=== PATIENT | female | born 1995 | race Caucasian/White ===

== ENCOUNTER → 2020-03-18 15:23 | Outpatient (CLI) | payer OTHER, SELFPAY ==
--- NOTE | 2020-03-18 | DI.ECHO.S_ITS ---
[facility] +---------+ : : [address] : [address] : : : : [id number] : : : : Phone: [phone]+ Echocardiogram Report + + :Name: JOVANNA COREA Study Date: 03/18/2020 Height: 64 in : :[facility] Weight: 149 lb : : Gender: Female BSA: 1.7 m2 : :: 1995 Age: 24 yrs BP: 126/85 mmHg: :Reason For Study: Abnormal CXR : :Ordering Physician: ZULEMA, : :ROMY Performed By: Paloma Bateman : :Referring: ROMY POOLE : + + Interpretation Summary Left ventricular systolic function is normal with an estimated ejection fraction of 55 to 60% without focal wall motion abnormality. Left ventricular size and wall thickness are normal with probable normal diastolic function and normal filling pressures. The right ventricle appears normal. Pulmonary artery systolic pressure cannot be estimated but CVP is likely around 3 mmHg. Both atria are normal in size. The cardiac valves are normal without any functional abnormality. This is a normal echocardiogram. Procedure: A two-dimensional transthoracic echocardiogram with color flow and Doppler was performed. The study quality was technically adequate. There is no prior echocardiogram noted for this patient. The heart rate ranged between 59-64 bpm during the study. Left Ventricle: The left ventricle is normal in size, wall thickness, and systolic function without any focal wall motion abnormalities. The ejection fraction is estimated to be 55-60%. Diastolic parameters suggest probable normal left ventricular diastolic function and normal filling pressures. Right Ventricle: The right ventricle is normal in size and function. Atria: Both atria are normal in size. There is no Doppler evidence for an interatrial shunt. Mitral Valve: The mitral valve is normal in structure and function. There is no mitral regurgitation noted. Aortic Valve: The aortic valve is trileaflet. The aortic valve opens well. There is no aortic valve stenosis. No aortic regurgitation is present. Tricuspid Valve: The tricuspid valve is normal in structure and function. There is trace tricuspid regurgitation. Pulmonary artery pressures cannot be estimated because of the lack of a measurable TR jet velocity but the IVC suggests a CVP of around 3 mmHg. Pulmonic Valve: The pulmonic valve is normal in structure and function. There is trace pulmonic regurgitation. There is no significant valvular heart disease. Great Vessels: The aortic root is normal size. The ascending aorta is normal in size. The IVC is of normal diameter and collapses greater than 50% with a sniff. This suggests a low right atrial pressure of 3 mm Hg. Pericardium/ Pleura There is no pericardial effusion. There is no pleural effusion. MMode/2D Measurements & Calculations LVIDd: 4.7 cm LVOT diam: 2.1 cm LVIDs: 3.2 cm Ao root diam: 2.4 cm FS: 30.6 % asc Aorta Diam: 2.3 cm EPSS: 0.86 cm Ao Arch Diam (Prox Trans): 2.4 cm IVSd: 0.64 cm LVPWd: 0.71 cm LV morocho. diameter/BSA (cm/m^2): 2.7 LV sys. diameter/BSA (cm/m^2): 1.9 LA A2 area: 16.7 cm2 RA long axis: 4.7 cm LA A4 area: 17.0 cm2 RA area: 13.5 cm2 LA length (vol): 4.9 cm RA vol: 33.4 ml LA vol: 49.0 ml RA : 19.4 ml/m2 LA vol index: 28.4 ml/m2 IVC diam: 1.5 cm RVD1 (basal): 3.1 cm TAPSE: 2.0 cm Doppler Measurements & Calculations Ao V2 max: 123.4 cm/sec LVOT Max Lenard: 85.0 cm/sec Ao V2 mean: 82.3 cm/sec LV V1 max P.9 mmHg Ao max P.1 mmHg LV V1 VTI: 17.6 cm Ao mean P.1 mmHg RANJIT(I,D): 2.3 cm2 Ao V2 VTI: 27.5 cm RANJIT(V,D): 2.5 cm2 sev ratio: 0.64 RANJIT indexed to BSA (cm^2/m^2): 1.3 MV E max lenard: 96.3 cm/sec PA V2 max: 95.8 cm/sec MV A max lenard: 39.9 cm/sec PA V2 mean: 62.4 cm/sec MV E/A: 2.4 PA mean P.8 mmHg Med Peak E' Lenard: 11.4 cm/sec PA pr(Accel): 8.8 mmHg E/E' med: 8.5 Lat Peak E' Lenard: 22.8 cm/sec E/E' lat: 4.2 E/e' average: 6.3 MV dec time: 0.22 sec RUSTLVOT): 63.1 ml Reading Physician:PM
== END ==
PROVIDERS: Referring Provider Physician Assistant; Visit Provider Physician Assistant
DX: I51.9 Heart disease, unspecified (principal); R93.89 Abnormal findings on diagnostic imaging of other specified body structures
CPT/HCPCS: 93306

== ENCOUNTER 2021-05-04 10:22 | Emergency (ER) | payer OTHER, SELFPAY ==
[2021-05-04 10:28] VITALS: BP 118/78; PULSE 95; RESP 16; TEMP 36.8; O2SAT 98; BMI 30.9
--- NOTE | 2021-05-04 10:29 | ED.GENADULT ---
HPI - General Adult General Chief complaint: Nasal Problem Stated complaint: Nose Bleed Time Seen by Provider: 05/04/21 10:23 Source: patient and EMS Mode of arrival: EMS History of Present Illness HPI narrative: Patient is a 25-year-old female. 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. It was a intranasal approach. From the patient's description it sounds like it was a arachnoid cyst but I am not 100% confident of that specific diagnosis. She comes emergency department today for nose bleed. She states that this morning she was lying down. States that felt like a faucet. When she sat up blood started coming out of her nose. She is unsure exactly what side it was coming out of. EMS reports that was from the right nostril. She is feeling nauseous. Pressure was held. EMS stated that it had essentially stopped and round to the emergency department but then started again. Patient is also describing some heaviness in her chest. Related Data Allergies Allergy/AdvReac Type Severity Reaction Status Date / Time No Known Drug Allergies Allergy Verified 05/04/21 10:30 Review of Systems Constitutional Constitutional: Denies fever(s) and Reports headache(s) Eyes Eyes: Reports exophthalmos ENT Ears, Nose, Mouth, and Throat: Reports headache(s) and Denies sore throat Cardiovascular Cardiovascular: Denies chest pain and Reports dyspnea Respiratory Respiratory: Reports dyspnea Gastrointestinal Gastrointestinal: Reports nausea Integumentary/Breasts Skin/Breast: Reports system reviewed and no additional complaints, except as documented Neurologic Neurologic: Reports headache(s) Hematologic/Lymphatic On Anticoagulants: No Allergic/Immunologic Allergic/Immunologic: Reports system reviewed and no additional complaints, except as documented Patient History Social History (Updated 05/04/21 @ 10:37 by Niranjan Curtis DO) lives independently: Yes Smoking Status: Never smoker Exam Initial Vital Signs Initial Vital Signs: Vital Signs Temperature 98.2 F 05/04/21 10:28 Pulse Rate 95 H 05/04/21 10:28 Respiratory Rate 16 05/04/21 10:28 Blood Pressure 118/78 05/04/21 10:28 Pulse Oximetry 98 05/04/21 10:28 Const General: cooperative, healthy appearing, comfortable and well developed HENMI Head: normal to inspection Nose: external nose normal and epistaxis Face and sinus: normal facial exam Mouth: oral mucosae normal and tongue normal Eyes General: appearance normal, both eyes and all related structures Chest Chest: normal inspection of the chest Resp Effort & Inspection: normal respiratory effort Auscultation: clear to auscultation bilaterally Cardio Rate: regular rate Rhythm: regular rhythm GI Inspection: normal to inspection Skin General: no rashes or lesions noted Neuro General: patient alert, patient awake, patient oriented x3 and moves all extremities Extrem General: capillary refill normal Psych Appearance: grossly normal and well kempt Course Orders Ordered: Discontinued Medications Acetaminophen (Acetaminophen 325 Mg Tablet) 650 mg PO NOW ONE Stop: 05/04/21 11:05 Last Admin: 05/04/21 11:17 Dose: 650 mg Documented by: LIZZY Ondansetron HCl (Ondansetron 4 Mg Odt) 4 mg SL NOW ONE Stop: 05/04/21 10:29 Last Admin: 05/04/21 10:36 Dose: 4 mg Documented by: LIZZY Ondansetron HCl (Ondansetron 4 Mg Odt) 4 mg SL NOW ONE Stop: 05/04/21 12:11 Last Admin: 05/04/21 12:19 Dose: 4 mg Documented by: LIZZY Vital Signs Vital signs: Vital Signs - 8 hr 05/04/21 10:28 05/04/21 12:21 Temperature 98.2 F Pulse Rate 95 H 85 Respiratory Rate 16 16 Blood Pressure 118/78 112/70 Pulse Oximetry 98 98 Medical Decision Making MDM Narrative Medical decision making narrative: Patient was observed here in the emergency department for period of time. A nasal clamp was placed. When it was removed she was observed for a longer period of time without any continued bleeding. She is having some nausea which is controlled with Zofran. She has Zofran at home. It does appear that the bleeding is coming from the right nostril. Examination of the nostril does not show a specific site of bleeding. She is afebrile. Plan will be is to send her home with conservative treatment without further workup. She was given return precautions and follow-up instructions. She expressed understanding and agreement. Discharge Plan Departure Patient Disposition: Home Clinical Impression: Epistaxis Instructions: DI for Nosebleed Activity Restrictions/Additional Instructions: Use the nausea medicine that you already have for any nausea issues. Use the to try your hardest not to manipulate your nose and this includes sniffing, rubbing your nose, sneezing, vomiting. Follow all of the postoperative instructions given to you by the surgeons. Contact your primary provider for a follow-up. Return to the emergency department for any new or worsening symptoms
[2021-05-04] MEDS: ONDANSETRON 4 MG ODT SL ×2 (10:36→12:19)
[2021-05-04] MEDS: ACETAMINOPHEN 325 MG TABLET 650 MG PO (11:17)
--- NOTE | 2021-05-04 12:13 | PC.NURSE ---
EMS states r-nare was bleeding, pt states surgery mid-April to remove cyst via r-nare procedure.
[2021-05-04 12:21] VITALS: BP 112/70; PULSE 85; RESP 16; O2SAT 98
== END 2021-05-04 12:22 | disposition home or self-care (01) ==
PROVIDERS: Emergency Provider Emergency Medicine
DX: R04.0 Epistaxis (principal); R07.9 Chest pain, unspecified; R51.9 Headache, unspecified; R11.0 Nausea
CPT/HCPCS: 99283

== ENCOUNTER 2021-05-04 21:28 | Emergency (ER) | payer OTHER, SELFPAY ==
[2021-05-04 20:54] VITALS: BP 151/69; PULSE 127; RESP 24; TEMP 37.5; O2SAT 99; BMI 30.9
--- NOTE | 2021-05-04 21:52 | ED_ITS ---
HPI - Epistaxis General Chief complaint: Nasal Problem Stated complaint: Nose Bleed- post-surg Time Seen by Provider: 05/04/21 21:31 History of Present Illness HPI Narrative: Patient is a 25-year-old female who presents for 2nd time today with epistaxis. 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 Nose bleed started earlier today she was here around 10:30 a.m. was easily stopped with a nasal clamp. She went home it restarted she placed a nasal clamp on it she said for 37 minutes at continue to bleed at which point EMS was called. It seems to be pouring out both sides and going down her throat. She is not on any antiplatelet or anticoagulation medication. Related Data Allergies Allergy/AdvReac Type Severity Reaction Status Date / Time No Known Drug Allergies Allergy Verified 05/04/21 10:30 Review of Systems Review of Systems Narrative: GENERAL: Denies chills,fever HEENT: See HPI RESPIRATORY: Denies dyspnea, cough, wheezing CARDIOVASCULAR: Denies chest pain, palpitations GASTROINTESTINAL: Denies nausea, vomiting MUSCULOSKELETAL: Denies extremity pain, injury SKIN: No rash, no laceration, no pruritus NEUROLOGIC: Denies weakness, dizziness, headache, numbness 8 point review of systems is negative except for those stated above and HPI Patient History Social History (Updated 05/04/21 @ 10:37 by Niranjan Curtis DO) lives independently: Yes Smoking Status: Never smoker Smoking Status: Never smoker Substance Use Type: does not use Exam Initial Vital Signs Initial Vital Signs: Vital Signs Temperature 99.5 F 05/04/21 20:54 Pulse Rate 127 H 05/04/21 20:54 Respiratory Rate 24 05/04/21 20:54 Blood Pressure 151/69 H 05/04/21 20:54 Pulse Oximetry 99 05/04/21 20:54 GENERAL: Anxious 25-year-old female bilateral epistaxis NOSE: Bilateral epistaxis. Nasal suction is used in both nares. Initially no significant active bleeding was found anteriorly left side seems to be bleeding posteriorly but slowly. Unable to visualize bleed. Afrin placed with nasal clamp, however continued to bleed out both sides. Posterior Rhino rocket with Afrin placed on the left side. Quickly soaked and placed. Continues to spit up blood. 16 Green[place] Diamond catheter placed on right side CARDIOVASCULAR: peripheral pulses in tact, cap refill <2 sec RESPIRATORY: No respiratory distress, speaks in full sentences without difficulty EXTREMITIES: Normal range of motion, no clubbing or edema. Neurovascularly intact NEUROLOGICAL: Cranial nerves II through XII grossly intact. Normal gait and speech. SKIN: Warm, dry, no petechiae, no rashes or lesions. Course Orders Ordered: ED Orders 05/04/21 22:00 Complete Blood Count AUTO DIFF Stat Comprehensive Metabolic Panel Stat 05/04/21 22:25 Partial Thromboplastin Time Stat Prothrombin Time INR Stat 05/04/21 22:48 EKG-12 Lead Stat Discontinued Medications Morphine Sulfate (Morphine 2 Mg/Ml Inj) 2 mg IV NOW ONE Stop: 05/04/21 22:16 Last Admin: 05/04/21 22:22 Dose: 2 mg Documented by: DELIA Morphine Sulfate (Morphine 2 Mg/Ml Inj) 2 mg IV NOW ONE Stop: 05/04/21 23:34 Last Admin: 05/04/21 23:38 Dose: 2 mg Documented by: MELLISSA Oxymetazoline HCl (Oxymetazoline Nasal [place] 15 Ml) 2 sprays NASAL NOW ONE Stop: 05/04/21 21:32 Last Admin: 05/04/21 22:21 Dose: 2 sprays Documented by: DELIA Silver Nitrate/Potassium Nitrate (Silver Nitrate Stick) 2 each TOP NOW ONE Stop: 05/04/21 21:37 Last Admin: 05/04/21 22:37 Dose: Not Given Documented by: DELIA Vital Signs Vital signs: Vital Signs - 8 hr 05/04/21 20:54 05/04/21 22:38 05/04/21 23:00 Temperature 99.5 F Pulse Rate 127 H 106 H 102 H Respiratory Rate 24 24 20 Blood Pressure 151/69 H 141/75 H 128/76 Pulse Oximetry 99 99 97 05/04/21 23:30 Temperature Pulse Rate 125 H Respiratory Rate 29 H Blood Pressure 135/80 Pulse Oximetry 95 MDM - Epistaxis Lab Data Result diagrams: 05/04/21 22:00 05/04/21 22:00 Labs: Lab Results 05/04/21 05/04/21 05/04/21 Range/Units 22:00 22:00 22:25 WBC 11.6 H (4.5-11.0) X10^3/uL RBC 3.86 L (4.0-5.2) X10^6/uL Hgb 11.0 L (12.0-16.0) g/dL Hct 34.0 L (36-46) % MCV 87.9 (80-100) fL MCH 28.5 (26-34) PG MCHC 32.4 (30-36) % RDW 14.4 (11.6-14.8) % Plt Count 376 (150-400) X10^3/uL Neut % (Auto) 69.0 (50-75) % Lymph % (Auto) 18.6 L (25-40) % [place] % (Auto) 11.2 (3-14) % Eos % (Auto) 0.9 L (2-4) % Baso % (Auto) 0.3 (0-2) % Neut # (Auto) 8000 H (3665-6686) /uL Lymph # (Auto) 2200 (6122-1002) /uL [place] # (Auto) 1300 H (0-900) /uL Eos # (Auto) 100 (0-450) /uL Baso # (Auto) 0 (0-100) /uL PT 11.4 (10.1-12.7) SECONDS INR 1.0 (0.9-1.3) APTT 35 (26.4-36.2) SECONDS Sodium 141 (137-145) mmol/L Potassium 4.3 (3.4-5.1) mmol/L Chloride 104 (98-107) mmol/L Carbon Dioxide 28 (22-32) mmol/L BUN 10 (7-17) mg/dL Creatinine 0.73 (0.52-1.04) mg/dL Estimated GFR > 60.0 (>60) mL/min BUN/Creatinine Ratio 13.7 (6-22) Glucose 108 H (70-100) mg/dL Calcium 9.7 (8.4-10.2) mg/dL Total Bilirubin 0.2 (0.2-1.3) mg/dL AST 23 (14-36) IU/L ALT 19 (<35) IU/L Alkaline Phosphatase 79 (38-126) U/L Total Protein 7.7 (6.3-8.2) g/dL Albumin 4.4 (3.5-5.0) g/dL Globulin 3.3 (1.7-4.1) g/dL Albumin/Globulin Ratio 1.3 (1.0-2.8) MDM Narrative Medical decision making narrative: Initial nasal clamp placed but continues to bleed out both sides. I suction both nares trying to visualize area of b leeding. Unable to do so but bleeding initially controlled. Afrin placed in both nares clamp replaced. And started bleeding again. It seemed to be coming out more of the left side. Unfortunately only 1 posterior rhino rocket available, they are on order. Rhino rocket placed in left [place] with Afrin. She continues to bleed around that left knee are and out of the right nare as well. 16 Green[place] Diamond catheter placed in right [place]. Seems to have controlled and stopped some of the bleeding. Continues to cough and spit up saliva and blood tinged saliva. 2199-Dr. Jarrell ENT, states patient needs to go to [facility] and that nose needs to be packed. States he is 40-45 minutes away and that she needs to be airlifted to [facility]. The patient remains tachycardic and hypertensive. Bleeding seems to have stopped not draining down throat not coming out nares 225 Dr Nieto, ENT, at [facility] updated patient's symptoms test results recommends patient be transferred his to ED. Patient's bleeding is temporized but due for instability would be better if she is fliwn. This facility has done everything we can to help her. And she needs higher level of Critical Care Time Critical Care Time Critical Care Time: Yes Total Critical Care Time: 45 Attestation: The high probability of a clinically significant, sudden or life threatening deterioration of the [cardiovascular] system(s) required my full and direct attention, intervention and personal management. The aggregate critical care time was [45] minutes. This time is in addition to time spent performing reported procedures but includes the following: [x] Data Review and interpretation [x] Patient assessment and monitoring of vital signs [x] Documentation [x] Medication orders and management Discharge Plan Departure Patient Disposition: [facility] Clinical Impression: Epistaxis
[2021-05-04] MEDS: OXYMETAZOLINE NASAL SPRAY 15 ML 2 SPRAYS NASAL (22:21)
[2021-05-04] MEDS: MORPHINE 2 MG/ML INJ IV ×2 (22:22→23:38)
[2021-05-04 22:25] LABS: Add Manual Diff / Slide Review NO; Basophils Absolute Auto 0 /uL (0-100); Basophils Percent Auto 0.3 % (0-2); Eosinophils Absolute Auto 100 /uL (0-450); Eosinophils Percent Auto 0.9 % (2-4); Lymphocytes Absolute Auto 2200 /uL (1100-4500); Lymphocytes Percent Auto 18.6 % (25-40); Mean Corpuscular HGB Conc 32.4 % (30-36); Mean Corpuscular Hemoglobin 28.5 PG (26-34); Mean Corpuscular Volume 87.9 fL (80-100); Monocytes Absolute Auto 1300 /uL (0-900); Monocytes Percent Auto 11.2 % (3-14); Neutrophils Absolute Auto 8000 /uL (1500-7000); Platelet Count 376 X10^3/uL (150-400); Red Blood Cell Count 3.86 X10^6/uL (4.0-5.2); Red Cell Distribution Width 14.4 % (11.6-14.8); White Blood Cell Count 11.6 X10^3/uL (4.5-11.0)
[2021-05-04 22:28] LABS: Alanine Aminotransferase 19 IU/L (<35); Albumin 4.4 g/dL (3.5-5.0); Albumin Globulin Ratio 1.3 (1.0-2.8); Alkaline Phosphatase 79 U/L (38-126); Aspartate Aminotransferase 23 IU/L (14-36); BUN Creatinine Ratio 13.7 (6-22); Bilirubin Total 0.2 mg/dL (0.2-1.3); Blood Urea Nitrogen 10 mg/dL (7-17); Calcium 9.7 mg/dL (8.4-10.2); Carbon Dioxide 28 mmol/L (22-32); Chloride 104 mmol/L (98-107); Estimated Glomerular Filt Rate > 60.0 mL/min (>60); Globulin 3.3 g/dL (1.7-4.1); Glucose 108 mg/dL (70-100); HEMOLYSIS < 15 (0-50); Potassium 4.3 mmol/L (3.4-5.1); Sodium 141 mmol/L (137-145); Total Protein 7.7 g/dL (6.3-8.2)
[2021-05-04 22:38] VITALS: BP 141/75; PULSE 106; RESP 24; O2SAT 99
[2021-05-04 23:00] VITALS: BP 128/76; PULSE 102; RESP 20; O2SAT 97
[2021-05-04 23:09] LABS: Prothrombin Time 11.4 SECONDS (10.1-12.7)
[2021-05-04 23:12] LABS: PTT Partial Thromboplastin Tim 35 SECONDS (26.4-36.2)
[2021-05-04 23:30] VITALS: BP 135/80; PULSE 125; RESP 29; O2SAT 95
== END 2021-05-04 23:51 | disposition short-term general hospital (02) ==
PROVIDERS: Emergency Provider Emergency Medicine
DX: R04.0 Epistaxis (principal); R00.0 Tachycardia, unspecified; I10 Essential (primary) hypertension
CPT/HCPCS: 30903; 30905; 36415; 80053; 85025; 85610; 85730; 93005; 93010; 96374; 96376; 99283; 99284; 99291; A9270; J2270

== ENCOUNTER 2021-05-28 10:47 | Emergency (ER) | payer OTHER, SELFPAY ==
[2021-05-28] VITALS (18 sets, daily range): BP systolic 112–140; BP diastolic 59–90; PULSE 77–101; RESP 14–18; TEMP 35.6; O2SAT 97–100
--- NOTE | 2021-05-28 14:46 | DI.RAD.S_ITS ---
PROCEDURE: XR CHEST 1V INDICATIONS: chest pain TECHNIQUE: One view of the chest was acquired. COMPARISON: None. FINDINGS: Surgical changes and devices: None. Lungs and pleura: Lungs are clear. No pleural effusions or pneumothorax. Mediastinum: Mediastinal contours appear normal. Heart size is normal. Bones and chest wall: No suspicious bony lesions. Overlying soft tissues appear unremarkable. IMPRESSION: No acute cardiopulmonary pathology. Dictated by: Giovany Cheema M.D. on 05/28/2021 at 15:54 Approved by: Giovany Cheema M.D. on 05/28/2021 at 15:55
[2021-05-28 15:06] LABS: Add Manual Diff / Slide Review NO; Basophils Absolute Auto 100 /uL (0-100); Basophils Percent Auto 0.7 % (0-2); Eosinophils Absolute Auto 0 /uL (0-450); Eosinophils Percent Auto 0.1 % (2-4); Hematocrit 29.2 % (36-46); Hemoglobin 9.3 g/dL (12.0-16.0); Lymphocytes Absolute Auto 1500 /uL (1100-4500); Lymphocytes Percent Auto 18.5 % (25-40); Mean Corpuscular HGB Conc 31.8 % (30-36); Mean Corpuscular Hemoglobin 26.7 PG (26-34); Mean Corpuscular Volume 83.8 fL (80-100); Monocytes Absolute Auto 400 /uL (0-900); Monocytes Percent Auto 4.9 % (3-14); Neutrophils Absolute Auto 6000 /uL (1500-7000); Neutrophils Percent Auto 75.8 % (50-75); Platelet Count 312 X10^3/uL (150-400); Red Blood Cell Count 3.48 X10^6/uL (4.0-5.2); White Blood Cell Count 7.9 X10^3/uL (4.5-11.0)
[2021-05-28 16:03] LABS: Alanine Aminotransferase 11 IU/L (<35); Albumin 4.1 g/dL (3.5-5.0); Albumin Globulin Ratio 1.5 (1.0-2.8); Alkaline Phosphatase 71 U/L (38-126); Aspartate Aminotransferase 20 IU/L (14-36); BUN Creatinine Ratio 8.6 (6-22); Bilirubin Total 0.3 mg/dL (0.2-1.3); Blood Urea Nitrogen 5 mg/dL (7-17); Calcium 9.5 mg/dL (8.4-10.2); Carbon Dioxide 25 mmol/L (22-32); Chloride 105 mmol/L (98-107); Creatine Kinase 24 U/L (30-135); Estimated Glomerular Filt Rate > 60.0 mL/min (>60); Globulin 2.7 g/dL (1.7-4.1); Glucose 100 mg/dL (70-100); HEMOLYSIS < 15 (0-50); Lipase 128 U/L (23-300); Potassium 4.7 mmol/L (3.4-5.1); Sodium 138 mmol/L (137-145); Total Protein 6.8 g/dL (6.3-8.2)
[2021-05-28 16:15] LABS: Troponin I < 0.012 ng/mL (0.01-0.034)
--- NOTE | 2021-05-28 16:37 | ED.CHESTPAIN ---
HPI - Chest Pain General Chief Complaint: Chest Pain Stated Complaint: chest discomfort and dizziness after surgery Time Seen by Provider: 05/28/21 12:23 Source: patient Mode of arrival: Ambulatory Limitations: no limitations History of Present Illness HPI narrative: 25-year-old woman who underwent endoscopic brain surgery on April 26 for a brain tumor at the [facility]. She then underwent emergent surgery on 05/11 to cauterize arterial bleeding related to the surgery. All of this was at the [facility]. She reports that her physicians noted that she was tachycardic in the emergency department at that time she said the attributed it to anxiety, pain and postsurgical blood-loss. She presents today complaining of exertional fatigue and dyspnea with minimal effort increased heart rate, dizziness and a sense of being unsteady if she standing too long. She has been having increasing nausea and also complains of increasing nasal mucus. She states that she has not had any change to the headaches that she has been experiencing since being discharged home 2 weeks ago. She notes that the headaches tend to be worse at night and most she takes 2 Tylenol per 24 hours to help with this. She describes no vomiting, no black stools, no abdominal pain and no acute neurologic findings otherwise. She is not describing palpitations or chest tightness. Related Data Allergies Allergy/AdvReac Type Severity Reaction Status Date / Time No Known Drug Allergies Allergy Verified 05/28/21 10:50 Review of Systems Review of Systems Narrative: Remainder of complete review of systems is otherwise unremarkable except for that included in the HPI. Patient History Medical History Brain tumor Social History lives independently: Yes Smoking Status: Never smoker Smoking Status: Never smoker alcohol intake frequency: holidays/special occasions only Substance Use Type: does not use Exam Narrative Exam Narrative: General: Healthy appearing, in no acute distress. Able to give a complete and coherent history. Well-nourished well-developed HEENT: Moist mucous membranes, normal sclera with reactive pupils, Neck: No JVD, supple Respiratory: Lungs are clear to auscultation, no wheezing no rales no rhonchi. Full and symmetrical air movement Cardiac: Tachycardic with regular rhythm, no murmurs no bruits Abdomen: Soft, nontender, good bowel tones, no flank pain Skin: Warm and dry, no rashes Neurologic: Grossly neurologically intact with no obvious asymmetries or abnormalities Extremities: No trauma, well perfused Psych: Cooperative, appropriate insight and affect Initial Vital Signs Initial Vital Signs: Vital Signs Temperature 96.0 F L 05/28/21 10:50 Pulse Rate 89 05/28/21 10:50 Respiratory Rate 15 05/28/21 10:50 Blood Pressure 133/76 05/28/21 10:50 Pulse Oximetry 100 05/28/21 10:50 Course Orders Ordered: ED Orders 05/28/21 10:54 EKG-12 Lead Stat 05/28/21 14:45 Complete Blood Count AUTO DIFF Stat Comprehensive Metabolic Panel Stat Lipase Stat Troponin & CK Cardiac Panel Stat 05/28/21 14:46 XR chest 1V Stat EKG-12 Lead Stat Sodium Chloride (Normal Saline 0.9%) 1,000 mls @ 1,000 mls/hr IV BOLUS ONE Stop: 05/28/21 17:48 Last Admin: 05/28/21 16:53 Dose: 1,000 mls/hr Documented by: Sodium Chloride (Normal Saline 0.9%) 1,000 mls @ 1,000 mls/hr IV BOLUS ONE Stop: 05/28/21 17:56 Discontinued Medications Ondansetron HCl (Ondansetron 4 Mg/2 Ml Inj) 4 mg IV NOW ONE Stop: 05/28/21 16:50 Last Admin: 05/28/21 16:53 Dose: 4 mg Documented by: Vital Signs Vital signs: Vital Signs - 8 hr 05/28/21 10:50 05/28/21 11:41 05/28/21 11:42 Temperature 96.0 F L Pulse Rate 89 101 H Respiratory Rate 15 Blood Pressure 133/76 124/68 Pulse Oximetry 100 97 100 05/28/21 12:00 05/28/21 12:30 05/28/21 13:00 Temperature Pulse Rate 85 90 87 Respiratory Rate 16 17 16 Blood Pressure 116/69 112/64 113/75 Pulse Oximetry 99 99 100 05/28/21 13:30 05/28/21 14:00 05/28/21 14:30 Temperature Pulse Rate 83 92 H 88 Respiratory Rate 14 17 16 Blood Pressure 116/63 118/73 117/66 Pulse Oximetry 100 99 100 05/28/21 15:00 05/28/21 15:30 05/28/21 16:00 Temperature Pulse Rate 92 H 82 81 Respiratory Rate 18 14 15 Blood Pressure 130/90 122/69 120/67 Pulse Oximetry 100 99 100 05/28/21 16:30 Temperature Pulse Rate 84 Respiratory Rate 17 Blood Pressure 130/74 Pulse Oximetry 98 MDM - Chest Pain Lab Data Result diagrams: 05/28/21 14:45 05/28/21 14:45 Labs: Lab Results 05/28/21 05/28/21 Range/Units 14:45 14:45 WBC 7.9 (4.5-11.0) X10^3/uL RBC 3.48 L (4.0-5.2) X10^6/uL Hgb 9.3 L (12.0-16.0) g/dL Hct 29.2 L (36-46) % MCV 83.8 (80-100) fL MCH 26.7 (26-34) PG MCHC 31.8 (30-36) % RDW 14.0 (11.6-14.8) % Plt Count 312 (150-400) X10^3/uL Neut % (Auto) 75.8 H (50-75) % Lymph % (Auto) 18.5 L (25-40) % [place] % (Auto) 4.9 (3-14) % Eos % (Auto) 0.1 L (2-4) % Baso % (Auto) 0.7 (0-2) % Neut # (Auto) 6000 (2241-1132) /uL Lymph # (Auto) 1500 (4054-6612) /uL [place] # (Auto) 400 (0-900) /uL Eos # (Auto) 0 (0-450) /uL Baso # (Auto) 100 (0-100) /uL Sodium 138 (137-145) mmol/L Potassium 4.7 (3.4-5.1) mmol/L Chloride 105 (98-107) mmol/L Carbon Dioxide 25 (22-32) mmol/L BUN 5 L (7-17) mg/dL Creatinine 0.58 (0.52-1.04) mg/dL Estimated GFR > 60.0 (>60) mL/min BUN/Creatinine Ratio 8.6 (6-22) Glucose 100 (70-100) mg/dL Calcium 9.5 (8.4-10.2) mg/dL Total Bilirubin 0.3 (0.2-1.3) mg/dL AST 20 (14-36) IU/L ALT 11 (<35) IU/L Alkaline Phosphatase 71 (38-126) U/L Total Creatine Kinase 24 L (30-135) U/L CK-MB (CK-2) TNP CK-MB (CK-2) Rel Index TNP Troponin I < 0.012 (0.01-0.034) ng/mL Total Protein 6.8 (6.3-8.2) g/dL Albumin 4.1 (3.5-5.0) g/dL Globulin 2.7 (1.7-4.1) g/dL Albumin/Globulin Ratio 1.5 (1.0-2.8) Lipase 128 (23-300) U/L Point of Care Testing Test Results Negative Urine Dip Bedside Urine Glucose Negative Bedside Urine Bilirubin - Negative Bedside Urine Ketone - Negative Urine Specific [place] 1.015 Bedside Urine Occult Blood - Negative Bedside Urine pH 6.0 Bedside Urine Protein - Negative Bedside Urine Urobilinogen - Negative Bedside Urine Nitrite - Negative Bedside Urine Leukocytes - Negative Esterase MDM Narrative Medical decision making narrative: Otherwise healthy 25-year-old woman post endoscopic brain surgery with bleeding complication 2 weeks after initial surgery presents with exertional dyspnea and fatigue. Labs are notable for a significant decrease in H& H. May 04 she was 11 and 34 and today she is at 9.3 and 29.2. She is moderately orthostatic with heart rate 99 at rest and lying and jumping up to 121 simply standing. She complains of mild nausea, mild headache unchanged since surgery in controlled with low doses of Tylenol. No palpitations or chest pain. No black stools. She is given 2 L of fluid and Zofran with significant improvement in the orthostatic symptoms. I suspect that her symptoms are secondary to surgical recovery as well as postoperative acute anemia of blood loss that should resolve quickly. Reassurance given. Discharge Plan Departure Patient Disposition: Home Clinical Impression: Dehydration Anemia Qualifiers: Anemia type: other cause Other causes of anemia: acute posthemorrhagic Qualified Code(s): D62 - Acute posthemorrhagic anemia Instructions: DI for Iron Deficiency Anemia-Adult Activity Restrictions/Additional Instructions: Thank you for coming in today You are relatively anemic after your surgeries. Your hemoglobin had been 11.1 and is down to 9.3. I suspect that that is the reason that you are so tired and her heart rate goes up so much with minimal activity. Eating iron rich foods can be helpful to allow your body to build up your blood supply again. Making sure that you are drinking plenty of fluids can also help. I am not seeing any evidence of infection or surgical complications. I hope you continue to heal quickly. Referrals: Betty Salmon ARNP [Primary Care Provider] -
[2021-05-28] MEDS: SODIUM CHLORIDE 0.9% 1,000 ML 1000 ML IV ×2 (16:53→17:49)
[2021-05-28] MEDS: ONDANSETRON 4 MG/2 ML INJ IV (16:53)
== END 2021-05-28 18:48 | disposition home or self-care (01) ==
PROVIDERS: Emergency Provider Emergency Medicine; PCP Nurse Practitioner Family
DX: D62 Acute posthemorrhagic anemia (principal); E86.0 Dehydration; R07.9 Chest pain, unspecified
CPT/HCPCS: 36415; 71045; 80053; 81003; 81025; 82550; 83690; 84484; 85025; 93005; 93010; 96361; 96374; 99284; J2405